=== PATIENT | female | born 1955 | race African-American/Black ===

== ENCOUNTER 2017-08-23 16:59 | Emergency (ER) | payer MEDICAID ==
--- NOTE | 2017-08-23 18:01 | Emergency Department Record ---
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 No fevers or chills. She has been generally weak. She seems shaky at times. No vomiting or diarrhea. She seems off balance at times. She was started on a sleeping pill about 7 weeks ago. She is on psychiatric medications for behavioral issues. She mental impairment at baseline. She is eating and drinking well. She was seen at [facility] and had a UA performed several days ago that did not demonstrate infection. PCP is visiting physicians. She is treated treated by psychiatry for her chronic schizophrenia and behavioral modulation. -: Days(s) Location: Generalized Severity: Moderate Improves with: None Worsens with: None - A[place] Coma Scale Eye Response: (4) Open spontaneously Motor Response: (6) Obeys commands Verbal Response: (1) No verbal response Avant Total: 11 - Related Data Home Medications Medication Instructions Recorded Confirmed Last Taken Atorvastatin Calcium [Lipitor] 10 mg PO QHS 08/23/17 08/23/17 Unknown Lisinopril 2.5 mg PO DAILY 08/23/17 08/23/17 Unknown [place] Carbonate 600 mg PO BID 08/23/17 08/23/17 Unknown Olanzapine [Zyprexa] 2.5 mg PO DAILY 08/23/17 08/23/17 Unknown Olanzapine [Zyprexa] 7.5 mg PO QHS 08/23/17 08/23/17 Unknown Pioglitazone HCl [Actos] 30 mg PO DAILY 08/23/17 08/23/17 Unknown Trazodone HCl 50 mg PO QHS 08/23/17 08/23/17 Unknown Allergies Allergy/AdvReac Type Severity Reaction Status Date / Time No Known Drug Allergies Allergy Verified 08/23/17 17:44 Travel Screening - Travel/Exposure Within Last 30 Days Have you traveled within the last 30 days?: No Review of Systems Constitutional: Reports: Malaise, Weakness. Denies: Chills, Fever Eyes: Denies: Eye discharge, Eye pain, Photophobia, Vision change ENT: Denies: Congestion, Throat pain Respiratory: Denies: Cough, Dyspnea, Hemoptysis, Stridor, Wheezes Cardiovascular: Denies: Chest pain, Palpitations, Syncope Endocrine: Reports: Fatigue. Denies: Polydipsia, Polyuria Gastrointestinal: Denies: Abdominal pain, Diarrhea, Nausea, Vomiting Genitourinary: Denies: Dysuria, Urgency Musculoskeletal: Reports: Arthralgia (right shoulder after a fall). Denies: Back pain, Joint swelling, Myalgia Skin: Denies: Bruising, Change in color, Rash Neurological: Reports: Abnormal gait, Weakness Psychiatric: Reports: Anxiety Hematological/Lymphatic: Denies: Blood Clots, Easy bleeding, Easy bruising, Swollen glands Past Medical History - SOCIAL HISTORY Smoking Status: Never smoker Alcohol Use: None Drug Use: None - RESPIRATORY Hx Respiratory Disorders: No - CARDIOVASCULAR Hx Cardio Disorders: Yes Comment:: high cholesterol - NEURO Hx Neuro Disorders: Yes Hx Dementia: Yes Hx Seizures: Yes Comment:: Mental retardation - GI Hx GI Disorders: No - Hx Genitourinary Disorders: No - ENDOCRINE Hx Endocrine Disorders: Yes Hx Diabetes: Yes - MUSCULOSKELETAL Hx Musculoskeletal Disorders: No - PSYCH Hx Psych Problems: Yes Hx Depression: Yes Comment:: schizophrenia - HEMATOLOGY/ONCOLOGY Hx Hematology/Oncology Disorders: Yes Comment:: fragile x syndrome Family Medical History Any Significant Family History?: No Physical Exam - General General Appearance: Alert, Cooperative, No acute distress, Other (cooperates with examination, follows my commands and requests) Limitations: Other (chronic mental impairment) - Head Head exam: Atraumatic, Normocephalic, Normal inspection - Eye Eye exam: Normal appearance, PERRL. negative: Conjunctival injection, Periorbital swelling - ENT ENT exam: Normal exam, Mucous membranes moist Ear exam: Normal external inspection Nasal Exam: Normal inspection Mouth exam: Normal external inspection - Neck Neck exam: Normal inspection, Full ROM. negative: Tenderness - Respiratory Respiratory exam: Normal lung sounds bilaterally. negative: Respiratory distress - Cardiovascular Cardiovascular Exam: Regular rate, Normal rhythm, Normal heart sounds Peripheral Pulses: 2+: Radial (R), Radial (L) - GI/Abdominal GI/Abdominal exam: Soft. negative: Distended, Guarding, Rebound, Rigid, Tenderness - Rectal Rectal exam: Deferred - exam: Deferred - Extremities Extremities exam: Normal inspection, Full ROM, Normal capillary refill, Tenderness (tender right shoulder). negative: Joint swelling, Pedal edema - Back Back exam: Reports: Normal inspection, Full ROM. Denies: Muscle spasm, Rash noted, Tenderness - Neurological Neurological exam: Alert, Other (alert, follows commands, few words that are appropriate with questioning) - Psychiatric Psychiatric exam: Normal affect, Normal mood - Skin Skin exam: Dry, Intact, Normal color, Warm Course Vital Signs 08/23/17 17:37 Temperature 97.5 F L Pulse Rate 86 Respiratory 20 Rate Blood Pressure 138/73 Pulse Ox 97 - Reevaluation(s) Reevaluation #1: 08/23/17 18:05 No acute changes in the vitals 08/23/17 18:50 The labs were reviewed No acute changes in the CBC The BMP was reviewed. Normal renal function. Glucose is 175 The AG is normal at 12 The AST is 180 The ALT is 88 The Alk Phos is 124 The bili is normal at 0.6 The UA is trace LE, with 0-2 WBC with few bacteria LI level is pending. 08/23/17 19:15 The prelim shoulder XR is negative for acute changes. 08/23/17 19:17 HCT no acute process. Platybasia. 08/23/17 19:17 The case was signed out to Dr Voss for review of the remaining labs and final disposition. 08/23/17 19:30 Alcohol, Acetaminophen, and Salicylate are negative. Medical Decision Making - Lab Data Result diagrams: 08/23/17 17:50 08/23/17 17:50 Disposition Disposition: Discharge Clinical Impression: Weakness Disposition: Home, Self-Care Condition: (2) Stable Instructions: Fatigue (ED) Additional Instructions: Return to ED if your symptoms worsen or if you have any concerns. Hold [place] x 2 doses, repeat level Wednesday. Hold the patient's sleeping medication until seen Wednesday. Follow-up with your family doctor Wednesday as scheduled. Forms: Patient Portal Access Time of Disposition: 21:00 Quality - Quality Measures Quality Measures: N/A - Blood Pressure Screening Does Patient Have Any of the Following: No Blood Pressure Classification: Pre-Hypertensive BP Reading Systolic Measurement: 138 Diastolic Measurement: 73 Screening for High Blood Pressure: < Pre-Hypertensive BP, F/U Documented > [ G8950] Pre-Hypertensive Follow-up Interventions: Referral to alternative/primary care provider.
[2017-08-23] MEDS ORDERED: 0.9 % SODIUM CHLORIDE 1,000 ML BAG IV ONE (18:07)
[2017-08-23 18:22] LABS: URINE APPEARANCE CLEAR; URINE BILIRUBIN NEGATIVE (NEGATIVE); URINE BLOOD SMALL (NEGATIVE); URINE COLOR YELLOW; URINE GLUCOSE (UA) NEGATIVE (NEGATIVE); URINE KETONE NEGATIVE (NEGATIVE); URINE NITRITE NEGATIVE (NEGATIVE); URINE PROTEIN NEGATIVE (NEGATIVE); URINE UROBILINOGEN 0.2 E.U./dL (0.20 - 1.00)
[2017-08-23 18:29] LABS: BASO % 0.2 % (0-6); EOS % 4.4 % (0-6); GRAN % 70.9 % (47-80); HEMATOCRIT 36.8 % (35.0-47.0); HEMOGLOBIN 12.8 gm/dl (11.6-16.0); LYMPH % 16.8 % (16-45); MEAN CELL VOLUME 85.4 fl (81-97); MEAN CORPUSCULAR HEMOGLOBIN 29.7 pg (27-33); MEAN CORPUSCULAR HGB CONC 34.8 g/dl (32-36); MEAN PLATELET VOLUME 10.3 fl (7.4-10.4); MONO % 7.7 % (0-9); PLATELET COUNT 230 K/uL (130-400); RED BLOOD COUNT 4.31 M/uL (3.80-5.40); RED CELL DISTRIBUTION WIDTH 13.2 % (11.5-14.5); WHITE BLOOD COUNT W/O DIFF 8.2 K/uL (4.2-12.2)
[2017-08-23 18:31] LABS: URINE LEUKOCYTE ESTERASE TRACE (NEGATIVE)
[2017-08-23 18:32] LABS: URINE BACTERIA FEW; URINE EPITHELIAL CELLS 0 - 2 (FEW); URINE RBC 0 - 2 (NONE SEEN); URINE WBC 0 - 2 (0-2/hpf)
[2017-08-23 18:34] LABS: BLOOD UREA NITROGEN 9 mg/dL (8-23); CREATININE 0.6 mg/dL (0.5-0.9); EST GLOMERULAR FILTRATION RATE > 60 mL/min
[2017-08-23 18:35] LABS: TOTAL PROTEIN 7.7 g/dL (6.6-8.7)
[2017-08-23 18:37] LABS: GLUCOSE,RANDOM 175 mg/dL (74-109)
[2017-08-23 18:39] LABS: ALT/SGPT 88 U/L (<33)
[2017-08-23 18:40] LABS: ALB/GLOB RATIO 1.5 (1.1-1.8); ALBUMIN 4.6 g/dL (4.0-5.0); ALKALINE PHOSPHATASE 124 U/L (35-104); AST/SGOT 180 U/L (10.0-35.0)
[2017-08-23 18:50] LABS: THYROID STIMULATING HORMONE 2.05 uIU/mL (0.270-4.20)
[2017-08-23 19:18] LABS: ACETAMINOPHEN < 5.0 ug/mL (10.0-30.0)
[2017-08-23 19:19] LABS: SALICYLATE < 0.3 mg/dL (2.8-20)
--- NOTE | 2017-08-23 20:57 | Emergency Department Record ---
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) Mode of Arrival: Ambulatory Limitations: Other (chronic mental impairment) - History of Present Illness -: Days(s) Location: Generalized Severity: Moderate Improves with: None Worsens with: None - Krysta Coma Scale Eye Response: (4) Open spontaneously Motor Response: (6) Obeys commands Verbal Response: (1) No verbal response [place] Total: 11 - Related Data Home Medications Medication Instructions Recorded Confirmed Last Taken Atorvastatin Calcium [Lipitor] 10 mg PO QHS 08/23/17 08/23/17 Unknown Lisinopril 2.5 mg PO DAILY 08/23/17 08/23/17 Unknown [place] Carbonate 600 mg PO BID 08/23/17 08/23/17 Unknown Olanzapine [Zyprexa] 2.5 mg PO DAILY 08/23/17 08/23/17 Unknown Olanzapine [Zyprexa] 7.5 mg PO QHS 08/23/17 08/23/17 Unknown Pioglitazone HCl [Actos] 30 mg PO DAILY 08/23/17 08/23/17 Unknown Trazodone HCl 50 mg PO QHS 08/23/17 08/23/17 Unknown Allergies Allergy/AdvReac Type Severity Reaction Status Date / Time No Known Drug Allergies Allergy Verified 08/23/17 17:44 Travel Screening - Travel/Exposure Within Last 30 Days Have you traveled within the last 30 days?: No Review of Systems Constitutional: Reports: Malaise, Weakness. Denies: Chills, Fever Eyes: Denies: Eye discharge, Eye pain, Photophobia, Vision change ENT: Denies: Congestion, Throat pain Respiratory: Denies: Cough, Dyspnea, Hemoptysis, Stridor, Wheezes Cardiovascular: Denies: Chest pain, Palpitations, Syncope Endocrine: Reports: Fatigue. Denies: Polydipsia, Polyuria Gastrointestinal: Denies: Abdominal pain, Diarrhea, Nausea, Vomiting Genitourinary: Denies: Dysuria, Urgency Musculoskeletal: Reports: Arthralgia (right shoulder after a fall). Denies: Back pain, Joint swelling, Myalgia Skin: Denies: Bruising, Change in color, Rash Neurological: Reports: Abnormal gait, Weakness Psychiatric: Reports: Anxiety Hematological/Lymphatic: Denies: Blood Clots, Easy bleeding, Easy bruising, Swollen glands Past Medical History - SOCIAL HISTORY Smoking Status: Never smoker Alcohol Use: None Drug Use: None - RESPIRATORY Hx Respiratory Disorders: No - CARDIOVASCULAR Hx Cardio Disorders: Yes Comment:: high cholesterol - NEURO Hx Neuro Disorders: Yes Hx Dementia: Yes Hx Seizures: Yes Comment:: Mental retardation - GI Hx GI Disorders: No - Hx Genitourinary Disorders: No - ENDOCRINE Hx Endocrine Disorders: Yes Hx Diabetes: Yes - MUSCULOSKELETAL Hx Musculoskeletal Disorders: No - PSYCH Hx Psych Problems: Yes Hx Depression: Yes Comment:: schizophrenia - HEMATOLOGY/ONCOLOGY Hx Hematology/Oncology Disorders: Yes Comment:: fragile x syndrome Family Medical History Any Significant Family History?: No Physical Exam - General Limitations: Other (chronic mental impairment) Course Vital Signs 08/23/17 08/23/17 17:37 20:33 Temperature 97.5 F L Pulse Rate 86 Pulse Rate [ 91 H Pulse Ox Probe] Respiratory 20 20 Rate Blood Pressure 138/73 Blood Pressure 117/85 [Left Arm] Pulse Ox 97 100 - Reevaluation(s) Reevaluation #1: 08/23/17 20:54 [place] level repoted to be 1.6. Patient and caregiver were updated on her results, caregiver reports that the patient is significantly improved in ED and at her baseline. Will hold her sleeping medication as well as (2) does of her [place] with scheduled follow-in 36 hours for repeat [place] level at that time. Caregiver agrees with the plan of care as discussed. Medical Decision Making - Lab Data Result diagrams: 08/23/17 17:50 08/23/17 17:50 Lab Results 08/23/17 08/23/17 08/23/17 Range/Units 17:50 17:50 17:50 WBC 8.2 (4.2-12.2) K/uL RBC 4.31 (3.80-5.40) M/uL Hgb 12.8 (11.6-16.0) gm/dl Hct 36.8 (35.0-47.0) % MCV 85.4 (81-97) fl MCH 29.7 (27-33) pg MCHC 34.8 (32-36) g/dl RDW 13.2 (11.5-14.5) % Plt Count 230 (130-400) K/uL MPV 10.3 (7.4-10.4) fl Gran % 70.9 (47-80) % Lymphocytes % 16.8 (16-45) % Monocytes % 7.7 (0-9) % Eosinophils % 4.4 (0-6) % Basophils % 0.2 (0-6) % Sodium 135 L (136-145) mmol/L Potassium 4.6 H (3.4-4.5) mmol/L Chloride 98 (98-107) mmol/L Carbon Dioxide 25.0 (22-29) mmol/L Anion Gap 12.0 (7-16) BUN 9 (8-23) mg/dL Creatinine 0.6 (0.5-0.9) mg/dL Estimated GFR > 60 mL/min Random Glucose 175 H (74-109) mg/dL Calcium 10.2 (8.8-10.2) mg/dL Magnesium 2.0 (1.6-2.4) mg/dL Total Bilirubin 0.60 (0.2-1.0) mg/dL AST 180 H (10.0-35.0) U/L ALT 88 H (<33) U/L Alkaline Phosphatase 124 H (35-104) U/L Total Protein 7.7 (6.6-8.7) g/dL Albumin 4.6 (4.0-5.0) g/dL Globulin 3.1 (1.4-4.8) gm/dL Albumin/Globulin Ratio 1.5 (1.1-1.8) TSH 2.05 (0.270-4.20) uIU/mL Urine Color Urine Appearance Urine pH (5.0-8.0) Ur Specific [place] (1.002-1.030) Urine Protein (NEGATIVE) Urine Glucose (UA) (NEGATIVE) Urine Ketones (NEGATIVE) Urine Blood (NEGATIVE) Urine Nitrite (NEGATIVE) Urine Bilirubin (NEGATIVE) Urine Urobilinogen (0.20 - 1.00) E.U./dL Ur Leukocyte Esterase (NEGATIVE) Urine RBC (NONE SEEN) Urine WBC (0-2/hpf) Ur Epithelial Cells (FEW) Urine Bacteria Salicylates < 0.3 L (2.8-20) mg/dL Acetaminophen < 5.0 L (10.0-30.0) ug/mL Ethyl Alcohol 0.000 (0-0.010) g/dL 08/23/17 Range/Units 18:15 WBC (4.2-12.2) K/uL RBC (3.80-5.40) M/uL Hgb (11.6-16.0) gm/dl Hct (35.0-47.0) % MCV (81-97) fl MCH (27-33) pg MCHC (32-36) g/dl RDW (11.5-14.5) % Plt Count (130-400) K/uL MPV (7.4-10.4) fl Gran % (47-80) % Lymphocytes % (16-45) % Monocytes % (0-9) % Eosinophils % (0-6) % Basophils % (0-6) % Sodium (136-145) mmol/L Potassium (3.4-4.5) mmol/L Chloride (98-107) mmol/L Carbon Dioxide (22-29) mmol/L Anion Gap (7-16) BUN (8-23) mg/dL Creatinine (0.5-0.9) mg/dL Estimated GFR mL/min Random Glucose (74-109) mg/dL Calcium (8.8-10.2) mg/dL Magnesium (1.6-2.4) mg/dL Total Bilirubin (0.2-1.0) mg/dL AST (10.0-35.0) U/L ALT (<33) U/L Alkaline Phosphatase (35-104) U/L Total Protein (6.6-8.7) g/dL Albumin (4.0-5.0) g/dL Globulin (1.4-4.8) gm/dL Albumin/Globulin Ratio (1.1-1.8) TSH (0.270-4.20) uIU/mL Urine Color Yellow Urine Appearance Clear Urine pH 6.5 (5.0-8.0) Ur Specific [place] <= 1.005 (1.002-1.030) Urine Protein Negative (NEGATIVE) Urine Glucose (UA) Negative (NEGATIVE) Urine Ketones Negative (NEGATIVE) Urine Blood Small H (NEGATIVE) Urine Nitrite Negative (NEGATIVE) Urine Bilirubin Negative (NEGATIVE) Urine Urobilinogen 0.2 (0.20 - 1.00) E.U./dL Ur Leukocyte Esterase Trace H (NEGATIVE) Urine RBC 0 - 2 (NONE SEEN) Urine WBC 0 - 2 (0-2/hpf) Ur Epithelial Cells 0 - 2 (FEW) Urine Bacteria Few Salicylates (2.8-20) mg/dL Acetaminophen (10.0-30.0) ug/mL Ethyl Alcohol (0-0.010) g/dL Disposition Disposition: Discharge Clinical Impression: Weakness Disposition: Home, Self-Care Condition: (2) Stable Instructions: Fatigue (ED) Additional Instructions: Return to ED if your symptoms worsen or if you have any concerns. Hold [place] x 2 doses, repeat level Wednesday. Hold the patient's sleeping medication until seen Wednesday. Follow-up with your family doctor Wednesday as scheduled. Forms: Patient Portal Access Time of Disposition: 20:56 Quality - Quality Measures Quality Measures: N/A - Blood Pressure Screening Does Patient Have Any of the Following: No Blood Pressure Classification: Pre-Hypertensive BP Reading Systolic Measurement: 138 Diastolic Measurement: 73 Screening for High Blood Pressure: < Pre-Hypertensive BP, F/U Documented > [ G8950] Pre-Hypertensive Follow-up Interventions: Referral to alternative/primary care provider.
--- NOTE | 2017-08-25 10:30 | RADIOLOGY REPORT ---
DATE: 08/23/2017 at 6:39 p.m. EXAM: RIGHT SHOULDER. HISTORY: The patient is sleepy; falls. TECHNIQUE: Three views of the right shoulder. COMPARISON: None. ENCOUNTER: Initial. FINDINGS: There is blurring on the lateral view. As visualized, no definite fracture or dislocation of the right shoulder identified. Mild degenerative arthritis at the glenohumeral joint and mild spurring at the acromioclavicular joint. IMPRESSION: 1. SOME DEGENERATIVE CHANGES AT THE RIGHT SHOULDER. 2. BLURRING ON THE LATERAL VIEW BUT NO DEFINITE FRACTURE OF THE RIGHT SHOULDER IDENTIFIED. JOB NUMBER: [id number] MTDD
--- NOTE | 2017-08-25 10:40 | CT SCAN REPORT ---
DATE: 08/23/2017 at 6:34 p.m. EXAM: EMERGENCY HEAD CT. HISTORY: Patient falls, dizziness, shaky, sleepy. TECHNIQUE: Axial CT scan of the head performed without intravenous contrast. Preliminary report provided by [facility]. COMPARISON: No prior head CT with which to compare. ENCOUNTER: Initial. FINDINGS: No definite acute intracranial hemorrhage identified. No focal mass effect or midline shift apparent. Slight density along the faux superiorly and anteriorly is probably just some calcification. Mild generalized atrophy and some chronic-appearing deep white matter changes are seen, nonspecific but likely representing some chronic small-vessel deep white matter ischemic disease. No definite acute infarct is seen. No depressed calvarial fracture is evident. IMPRESSION: 1. NO DEFINITE ACUTE INTRACRANIAL HEMORRHAGE OR FOCAL MASS EFFECT EVIDENT. 2. GENERALIZED ATROPHY WITH CHRONIC-APPEARING DEEP WHITE MATTER CHANGES. 3. IF THE PATIENT'S NEUROLOGIC SYMPTOMS PERSIST, FOLLOW-UP BRAIN MRI WOULD BE SUGGESTED FOR FURTHER EVALUATION IF NOT CONTRAINDICATED. JOB NUMBER: [id number] MTDD
== END 2017-08-23 21:02 | disposition home or self-care (01) ==
LOC: ER 16:59
DX: R53.1 Weakness (principal); R78.89 Finding of other specified substances, not normally found in blood; R42 Dizziness and giddiness; E11.9 Type 2 diabetes mellitus without complications; F20.9 Schizophrenia, unspecified; F79 Unspecified intellectual disabilities
CPT/HCPCS: 99284 ×2; 83735; 85025; 80053; 81001; 84443; 73030; 70450; G0480 ×3; 80320; 80329; J7030